=== PATIENT | male | born 1975 | race African-American/Black ===

== ENCOUNTER 2019-05-01 07:27 | Observation (INO) | payer OTHER ==
--- NOTE | 2019-05-01 08:04 | ED ---
HPI Chest Pain - HPI Summary HPI Summary: This pt is a 43 y/o male presenting to [facility] via facility transportation from [place] for chest pain and elevated blood pressure. Pt was brought to the ED for concerns of increased blood pressure. Patient describes a "cramping feeling " around both sides of his ribs for over a week now. Pt notes this pain is similar to when he had pneumonia, but reports "nt as intense." He states his pain is present with deep breaths and it causes him to take shallow breaths. Pt notes since he has had blood clots he has been having "breathing issues." Pt reports swelling in his legs every day. He states he has been eating and drinking ok. Pt is scheduled for an echo but does not know the date. PMHx: DVT, PE, high cholesterol, HTN. Denies hx of heart disease. Denies hx of DM, although he states he was once told he was borderline. Denies hx of liver or kidney disease. Patient reports he [place] was [place] blood [place] and had a stress test then, which patient states was normal. He was placed on Eliquis for 6 months and then was discontinued. He notes he had another blood clot after and was placed again on Eliquis. Patient notes he last had imaging that showed a clot in his lung in December 2018 (he was not incarcerated then). Patient is currently on Eliquis and his last dose was at midnight. He missed a dose of Eliquis on 04/27/19 night as he was being moved to his current facility ( he is relatively new). Patient is also on Lipitor. He is not on any medications for HTN. His blood pressure at the facility was 145/105. Pt has a ventral hernia but does not know how long he's had it for. NDKA. Patients medication reviewed this visit. - History of Current Complaint Chief Complaint: EDChestPainROMI Time Seen by Provider: 05/01/19 07:40 Hx Obtained From: Patient Onset/Duration: Started Days Ago, Still Present Timing: Lasting Days Current Severity: Moderate Pain Intensity: 4 Pain Scale Used: 0-10 Numeric Chest Pain Location: Left Lateral, Right Lateral Chest Pain Radiates: No Character: Dull/Aching - Aching Aggravating Factor(s): Movement, Deep Breaths Alleviating Factor(s): Rest Associated Signs and Symptoms: Positive: Chest Pain, Edema - in legs. Negative : Fever, Abdominal Pain - Allergy/Home Medications Allergies/Adverse Reactions: Allergies Allergy/AdvReac Type Severity Reaction Status Date / Time No Known Allergies Allergy Verified 05/01/19 07:46 Home Medications: Home Medications Apixaban* [Eliquis*] 5 mg PO BID 05/01/19 [History Confirmed 05/01/19] Atorvastatin* [Lipitor*] 10 mg PO BEDTIME 05/01/19 [History Confirmed 05/01/19] PMH/Surg Hx/FS Hx/Imm Hx Previously Healthy: Yes Endocrine/Hematology History: Reports: Hx Anticoagulant Therapy Denies: Hx Diabetes Cardiovascular History: Reports: Hx Deep Vein Thrombosis, Hx Hypercholesterolemia, Hx Hypertension Respiratory History: Reports: Hx Pulmonary Embolism - Surgical History Surgical History: None Infectious Disease History: No Infectious Disease History: Denies: Traveled Outside the [place] in Last 30 Days - Family History Known Family History: Positive: Cardiac Disease - mother with 2 "small heart attacks", Hypertension - mother, Diabetes - mother Family History: mother with high cholesterol - Social History Lives: Alone - incarcerated Alcohol Use: None Substance Use Type: Reports: None Smoking Status (MU): Never Smoked Tobacco Review of Systems Negative: Fever Positive: Chest Pain Positive: Other - shallow resp Gastrointestinal: Negative Positive: Edema - in legs Neurological: Negative All Other Systems Reviewed And Are Negative: Yes Physical Exam - Summary Physical Exam Summary: Vital Signs Reviewed: Yes A+Ox3, no distress, speaking easy sentences Eyes: Conjunctiva Clear, MARIZOL. EOM intact and full ENT: Hearing grossly normal TM x 2 clear, mmoist, uvula midline, no exudate, no erythema Neck: Positive: Supple Respiratory: Positive: No respiratory distress, No accessory muscle use + CTA throughout no w/r Cardiovascular: RRR nl s1, s2 no m/r CBT <2 sec no bruits. no reproducible pain abd soft + BS nt/nd no guarding, no distension Musculoskeletal Exam: FELDER x 4 without difficulty Strength Intact, ROM Intact Neurological: Positive: Alert, + sensation throughout Psychological: Positive: Normal Response To Family Skin: Positive: no rash, no ecchymosis Triage Information Reviewed: Yes Vital Signs On Initial Exam: Initial Vitals Temp Pulse Resp BP Pulse Ox 97.7 F 69 20 156/98 99 05/01/19 07:38 05/01/19 07:38 05/01/19 07:38 05/01/19 07:38 05/01/19 07:38 Diagnostics - Vital Signs Vital Signs Temp Pulse Resp BP Pulse Ox 05/01/19 07:38 97.7 F 69 20 156/98 99 - Laboratory Result Diagrams: 05/01/19 07:56 05/01/19 07:56 Lab Statement: Any lab studies that have been ordered have been reviewed, and results considered in the medical decision making process. - Radiology Chest XR Radiology Interpretation Completed By: Radiologist Summary of Radiographic Findings: IMPRESSION: No acute cardiopulmonary process. Dr. Love has reviewed this report. - CT Chest CTA CT Interpretation Completed By: Radiologist Summary of CT Findings: IMPRESSION: Small bilateral pulmonary emboli. Dr. Love has reviewed this report. - EKG 07:33 Cardiac Rate: NL - at 62 bpm EKG Rhythm: Sinus Rhythm EKG Comparison: No Significant Change - No changes compared to 04/21/19 Summary of EKG Findings: Inverted T wave in lead III. No acute ST-T wave changes. No STEMI. Re-Evaluation - Re-Evaluation First Eval Re-Evaluation Time: 09:27 Comment: Reviewed results with patient. Discussed CTA shows acute bilateral PE. Pt currently tuyet Ferrari. d/w Dr. vasquez - will admit, bridge with lovenox - agree to admission Chest Pain Course/Dx - Course Course Of Treatment: Pt presents to ED for reprots of elevated BP and tightness by ribs progresive x 1 week. Pt with h/o hyperlipiemia, and PE =- recurrent- on eliquis. Pt states had and EKGearlier this week when incaceratied - states was told need echo. no cardiac hx. VSS. pt well appearing with non cocnering VS. will check labs, ekg with EKG unchanged from 1 week ago -nted to have inverted T wave 3 and Q wave. will check labs, CXR, CTA. will reassess. pt in agreement with plan. elevated BP - being will be admitted, monitored - likely reate to ED conditin - Diagnoses Provider Diagnoses: Bilateral pulmonary embolism - Provider Notifications Discussed Care Of Patient With: Richard Benjamin Time Discussed With Above Provider: 09:22 Instructed by Provider To: Other - Dr. Benjamin, radiologist, calls to report CTA results of acute bilateral PE. [09:26] Discussed with Dr. Vasquez, hospitalist, who accepted the pt for admission. Discharge - Sign-Out/Discharge Documenting (check all that apply): Patient Departure - Admit to [facility] Patient Received Moderate/Deep Sedation with Procedure: No - Discharge Plan Condition: Stable Disposition: ADMITTED TO [facility] - Billing Disposition and Condition Condition: STABLE Disposition: Admitted to [facility] - Attestation Statements Document Initiated by Scribe: Yes Documenting Scribe: Yakelin Garcia Provider For Whom Scribe is Documenting (Include Credential): Kaleigh Love MD Scribe Attestation: Yakelin Guerra, scribed for Kaleigh Love MD on 05/02/19 at 0333. Scribe Documentation Reviewed: Yes Provider Attestation: The documentation as recorded by the scribeYakelin accurately reflects the service I personally performed and the decisions made by me, Kaleigh Love MD Status of Scribe Document: Viewed
[2019-05-01 08:11] LABS: ABS Eosinophils 0.1 10^3/ul (0-0.6); ABS Lymphocytes 1.4 10^3/ul (1.0-4.8); ABS Monocytes 0.5 10^3/ul (0-0.8); ABS Neutrophils 1.7 10^3/ul (1.5-7.7); Eosinophil % 1.6 %; Hematocrit 42 % (42-52); Hemoglobin 14.4 g/dL (14.0-18.0); Lymphocyte % 38.4 %; Mean Corpuscular HGB Conc 34 g/dL (31-36); Mean Corpuscular Hemoglobin 29 pg (27-31); Mean Corpuscular Volume 84 fL (80-94); Mean Platelet Volume 8.2 fL (7.4-10.4); Nucleated Red Blood Cells % 0.3; Platelet Count 216 10^3/uL (150-450); Red Blood Count 5.02 10^6 /uL (4.18-5.48); Red Cell Distribution Width 14 % (10-15); White Blood Count 3.7 10^3/uL (3.5-10.8)
[2019-05-01] MEDS ORDERED: NS 0.9% 1000 ML** 1,000 ML IV ONE (08:21)
[2019-05-01 08:31] LABS: Albumin 4.2 g/dL (3.2-5.2); Albumin/Globulin Ratio 1.3 (1-3); BUN/Creatinine Ratio 7.4 (8-20); Calcium 9.6 mg/dL (8.6-10.3); EGFR African American 77.7 (>60); EGFR Non-African American 64.2 (>60); Globulin 3.3 g/dL (2-4); Potassium 4.5 mmol/L (3.5-5.0); Total Bilirubin 0.5 mg/dL (0.2-1.0); Total Protein 7.5 g/dL (6.4-8.9)
[2019-05-01 08:36] LABS: INR 1.36 (0.82-1.09)
[2019-05-01] MEDS ORDERED: Iohexol 350* (CONTRAST) 500 ML MDV IV ONE (08:38)
[2019-05-01] MEDS ORDERED: Enoxaparin(*) 100 MG/ML SYR SUBCUT ONE (09:30)
[2019-05-01] MEDS ORDERED: Acetaminophen TAB* 325 MG PO PRN (09:48)
[2019-05-01] MEDS ORDERED: Al Hydrox/Mg Hydrox/Simet LIQ* 30 ML UDC PO PRN (09:48)
--- NOTE | 2019-05-01 11:28 | HP ---
CC: Dr. Kai Lin, [facility] * HISTORY AND PHYSICAL: DATE OF ADMISSION: 05/01/19 PRIMARY CARE PROVIDER: At this point, Dr. Kai Lin from [facility]. CHIEF COMPLAINT: Pleuritic chest pain. HISTORY OF PRESENT ILLNESS: Nile Esparza is a 43-year-old male with history of recurrent PEs. The patient was just started on Eliquis for newly diagnosed recurrent PE in December 2018. In February 2019, he entered state residential [facility]. At that point, he was tried on Coumadin but the patient stated "they had issues with getting him therapeutic." Then, he was placed on Eliquis but he missed the dose within the past week due to his frequent transfer from one facility to the other. He is at current facility for the past week. For the past week, he also started feeling pleuritic chest pain and shortness of breath similar to what he felt in December 2018. He came in to the ED for evaluation and CT showed acute PE. He is going to present overnight observation with question of failure of Eliquis treatment. PAST MEDICAL HISTORY: 1. Recurrent PE. First PE was diagnosed in November 2016. Used Xarelto for 6 months, then his anticoagulation was stopped. In August 2018, he developed another pleuritic chest pain. Once again he was diagnosed with PE, treated with Eliquis at that point for 6 months and then stopped. In December 2018, once again he was diagnosed with PE. At that point, he was placed back on Eliquis but apparently when he entered the residential system in February 2019, a trial of Coumadin was instituted. 2. History of hypertension. 3. History of dyslipidemia. CURRENT MEDICATIONS: Include: 1. Apixaban 5 mg b.i.d. 2. Atorvastatin 10 mg daily. ALLERGIES: No known drug allergies. FAMILY HISTORY: Positive for mother with diabetes, hypertension, and "two small MIs." SOCIAL HISTORY: The patient denies any history of tobacco, alcohol, or drug use , although he is at [facility] at this point, which is involuntary. REVIEW OF SYSTEMS: Please see history of present illness. In addition to the above mentioned, the patient stated that he has had intermittent right leg swelling ever since his diagnosis of the first PE. All the remaining 12 systems were reviewed and apart from the pertinent positives mentioned in history of present illness were negative. PHYSICAL EXAMINATION GENERAL: The patient is a very pleasant 43-year-old male who is in no acute distress. Alert, awake, and oriented x3. VITAL SIGNS: Blood pressure of 136/93, heart rate of 74 and regular, respiratory rate 19, oxygen saturation 100% on room air, temperature of 97.7. HEENT: Head atraumatic, normocephalic. Eyes: Pupils are equal, reactive to light and accommodation. Oropharynx clear. Mucosa moist. NECK: Supple. No JVD. No bruits bilaterally. RESPIRATORY: Clear to auscultation bilaterally. CARDIOVASCULAR: Regular rate and rhythm. No murmur. ABDOMEN: Soft and nontender. Bowel sounds present in all 4 quadrants. EXTREMITIES: There is no edema. Pulses are +2 bilaterally. There is no clubbing or cyanosis. NEUROLOGIC: On neuro evaluation, speech is clear. Cranial nerves II through XII are grossly intact. Motor strength is 5/5 bilaterally. DIAGNOSTIC STUDIES/LAB DATA: Laboratory data shows white blood cell count of 3.7, hemoglobin of 14.4, hematocrit of 42, and platelets of 216. INR was 1.36. Sodium was 141, potassium 4.5, chloride 104, carbon dioxide 29, BUN 9, creatinine 1.22. Liver function tests unremarkable. Troponin of 0. CT angiogram of the chest, impression: "Small bilateral pulmonary emboli." The patient's EKG showed normal sinus rhythm with negative T waves in lead III and aVF. ASSESSMENT AND PLAN: 1. A 43-year-old male with recurrent pulmonary embolisms, who now presents with pleuritic chest pain, shortness of breath, and CT shows small bilateral pulmonary emboli. The patient has history of pulmonary embolus diagnosed in December 2018. At this point, he had been on Eliquis but he missed the dose due to his incarceration within the past week. At this point, I am not 100% sure if that should be considered Eliquis failure. Nevertheless, the patient for the time being is going to be placed on Lovenox. His Eliquis is going to be held. I will ask Dr. Kay from Hematology to see the patient in consultation and recommendation of further anticoagulation. 2. For dyslipidemia, his atorvastatin is going to be continued. 3. Patient has EKG changes with negative T waves. It is difficult to establish how acute they are since I do not have any old EKGs in the system. At this point, the patient is going to be observed on quality assurance monitor bed with follow-up troponins. I suspect his chest pain is likely related to pulmonary embolism alone. 4. Patient's code status is full. TIME SPENT: Approximately 65 minutes was spent on the admission of this patient , more than half of that time was spent [id number] with the patient during the interview and physical exam. [id number]/[facility]PS #: [id number] LALI
[2019-05-01] MEDS ORDERED: Warfarin TAB(*) 5 MG PO SCH (17:00)
--- NOTE | 2019-05-01 17:09 | ECHO ---
*[facility]* [place] [address] Fax #: [phone] Transthoracic Echocardiogram Patient: Nile Esparza [id number] : 1975 Study Date: 05/01/2019 Age: 43 Gender: M HR: 70 bpm Height: 68 in /172.7 cm BSA: 2 m^2 Weight: 189.6 lb /86.2 kg BMI: 28.9 kg/m^2 *Permastone Applicator: * Niharika Cartwright RDCS RN *Referring Physician: * Arely Samuel *Reading Physician: Tony Lin MD History: Pulmonary embolic disease. Functional status: Obstructive sleep apnea. Risk factors: Hypertension. Dyslipidemia. DVT. Recurrent pulmonary emboli. Conclusions Summary: 1. Left ventricle: The cavity size is normal. Wall thickness is normal. Systolic function is mildly reduced. The estimated ejection fraction is 45-50%. Doppler parameters are consistent with abnormal left ventricular relaxation (grade 1 diastolic dysfunction). 2. Right ventricle: The cavity size is normal. Systolic function is low normal. 3. Mitral valve: There is trace to mild regurgitation. 4. Aortic valve: There is trace regurgitation. 5. Tricuspid valve: There is trace to mild regurgitation. 6. Pulmonary arteries: Systolic pressure can not be accurately estimated. Recommendations: No previous echocardiogram available. Study data: Transthoracic echocardiogram. Procedure: Transthoracic echocardiography was performed. Image quality was fair. Complete 2D, spectral Doppler, and color flow Doppler. Location: Bedside. Patient status: Observation. Patient room number: 441-02. Rhythm: Normal sinus rhythm. Findings Left ventricle: The cavity size is normal. Wall thickness is normal. Systolic function is mildly reduced. The estimated ejection fraction is 45-50%. Regional wall motion abnormalities: Hypokinesis of the basal-midinferior myocardium. Doppler parameters are consistent with abnormal left ventricular relaxation (grade 1 diastolic dysfunction). Right ventricle: The cavity size is normal. Systolic function is low normal. Left atrium: The atrium is normal in size. Right atrium: The atrium is normal in size. Mitral valve: The leaflets are mildly thickened. There is no evidence of stenosis. There is trace to mild regurgitation. Aortic valve: The valve is trileaflet. There is no evidence of stenosis. There is trace regurgitation. Tricuspid valve: The valve is structurally normal. There is no evidence of stenosis. There is trace to mild regurgitation. Pulmonic valve: The valve is structurally normal. There is no evidence of stenosis. There is no regurgitation. Aorta: Aortic root: The aortic root is not dilated. Ascending aorta: The ascending aorta is not dilated. Aortic arch: The aortic arch is not dilated. Pericardium: There is no pericardial effusion. Pulmonary arteries: The main pulmonary artery is normal-sized. Systolic pressure can not be accurately estimated. Systemic veins: Inferior vena cava: The vessel is normal in size. The respirophasic diameter changes are in the normal range (>= 50%). Measurements Left ventricle Value Ref Aortic valve Value Ref KAYLENE, LAX 5.2 cm 4.2 - 5.8 Timbo diam, ED 2.3 cm ---- ESD, LAX (H) 4.1 cm 2.5 - 4.0 Peak v, S 0.97 m/sec ---- FS, LAX (L) 21 % 25 - 43 VTI, S 21.7 cm ---- PW, ED 1.0 cm 0.6 - 1.0 Mean grad, S 2.0 mm Hg ---- IVS/PW, ED 0.97 Peak grad, S 4.0 mm Hg ---- E', lat timbo, TDI (L) 9.7 cm/sec >=10.0 LVOT/AV, VTI ratio 0.65 -- -- E/e', lat timbo, 7 TDI Mitral valve Value Ref E', med timbo, TDI (L) 6.3 cm/sec >=7.0 Peak E 0.63 m/sec -- -- E/e', med timbo, 10 Peak A 0.56 m/sec ---- TDI Decel time 306 ms ---- E', avg, TDI 8.0 cm/sec Peak E/A ratio 1.1 ---- E/e', avg, TDI 8 <=14 Pulmonic valve Value Ref LVOT Value Ref Peak v, S 0.59 m/sec ---- Peak jacob, S 0.68 m/sec Peak grad, S 1.0 mm Hg ---- VTI, S 14.2 cm Mean grad, S 1 mm Hg Aortic root Value Ref Root diam 3.8 cm <4.1 Ventricular septum Value Ref IVS, ED 1.0 cm 0.6 - 1.0 Ascending aorta Value Ref AAo AP diam, S 3.0 cm ---- Right ventricle Value Ref KAYLENE, LAX 2.2 cm Aortic arch Value Ref KAYLENE minor ax, A4C 3.3 cm 1.9 - 3.5 Arch diam 2.3 cm ---- mid Decending aorta Value Ref Left atrium Value Ref Mckenna peak jacob 0.71 m/sec ---- AP dim, ES 3.30 cm 3.00 - 4.00 Inferior vena cava Value Ref ML dim, A4C 3.9 cm Diam 1.1 cm ---- SI dim, A4C 4.6 cm Vol/bsa, ES, 1-p 13 ml/m^2 12 - 37 A4C Vol/bsa, ES, A/L 19 ml/m^2 16 - 34 Right atrium Value Ref ML dim, ES, A4C 4.3 cm 2.6 - 4.4 SI dim, ES, A4C 4.9 cm 3.4 - 5.3 Estimated RAP 3 mm Hg Legend: (L) and (H) eleazar values outside specified reference range. Prepared and electronically signed by Tony Harris MD 05/01/2019 17:09
--- NOTE | 2019-05-01 20:06 | CONS ---
CONSULTATION REPORT: DATE OF CONSULT: 05/01/19 REASON FOR CONSULT: Recurrent pulmonary embolus. HISTORY OF PRESENT ILLNESS: Mr. Esparza is a 43-year-old male, who has a history of multiple pulmonary emboli. He initially presented in November of 2016 after hospitalization for pneumonia. He was in bed for several days, went home and had swelling in his right lower extremity and then presented to the emergency room with both lower extremity swelling and chest pain. CT scan at that time showed unilateral pulmonary embolus, he believes on the right side. He was on heparin briefly, then treated with Xarelto for 6 months, stopping anticoagulation in the fall. His chest pain resolved, he continued to have some residual swelling in the right lower extremity. In June or July of 2018, he was taking long drives back and forth to [place] when he developed bilateral lower extremity edema. He then had chest pain, was admitted again to the hospital and found to have bilateral pulmonary emboli on CT scans. We do not have details of either hospitalization or his imaging studies. He was discharged on Eliquis for 6 months, but stopped treatment in November of 2018. He had been off Eliquis for 1 month, when in December of 2018 he again had lower extremity edema and chest pain. He was seen in [place] and a CT scan again showed pulmonary emboli, Eliquis was restarted. He remained on Eliquis since that time. On 03/06/19, he was incarcerated in [facility]. On incarceration, there was no access to Eliquis, he was started on Coumadin. He remained on Coumadin for 10 days before being transported to [place], [place], on 03/18/19. Arriving in [place], Coumadin was stopped, per his report INR was subtherapeutic. He was started back on Eliquis 5 mg p.o. b.i.d. on 03/19/19. He has remained on Eliquis since that time, missing 1 dose on the evening of 04/29/19, when he was transferred up to [place]. He developed increased chest pain starting approximately 04/18/19. He has been feeling increasingly short of breath because of the hot weather. He is short of breath with any exertion or walking up stairs. His pain and shortness of breath escalated yesterday and he went for a sick call at his facility. He had high blood pressure on exam and was sent to the emergency room. On presentation today at 7:40 a.m., he had a blood pressure of 156/98, peaked at 163/115. He had troponins that were negative, creatinine slightly elevated at 1.22, and a CT scan that showed bilateral peripheral pulmonary emboli, lower lobe with segmental atelectasis. He had an echocardiogram that showed both reduced LV and RV function with an ejection fraction of 45%, no significant valvular disease. He was admitted and placed on Lovenox 90 mg subcu q.12. Since admission, blood pressure has improved and his chest pain has improved. PAST MEDICAL HISTORY: 1. Recurrent PEs as noted above. 2. Hypertension. 3. Dyslipidemia. CURRENT MEDICATIONS: 1. Atorvastatin 10 mg a day. 2. Lovenox 90 subcu b.i.d. 3. Colace. 4. Senna. 5. Tylenol for pain. ALLERGIES: None. FAMILY HISTORY: Mother has diabetes. Hypertension in the family and cardiovascular disease. SOCIAL HISTORY: He lives in [facility]. He is at [place] for another 90 days. REVIEW OF SYSTEMS: As per HPI, he also has some residual swelling in both ankles. Fourteen-point otherwise reviewed and negative. PHYSICAL EXAM: Temperature 97.8, heart rate 67, respirations 18, sat 99%, BP 114/85. HEENT: Mucosa moist. No lesions. No cervical or supraclavicular lymphadenopathy. Lungs are clear to auscultation. Heart: Regular rate and rhythm. S1, S2. No murmurs, rubs, or gallops. Abdomen: Nontender, nondistended. No hepatosplenomegaly. Extremities: He has +1 edema right lower extremity. No edema in the left. Skin: No lesions. Ventral skin, did not do full exam. Neuro: Alert and oriented x3. Grossly nonfocal. ASSESSMENT AND PLAN: A 43-year-old male with a history of pulmonary embolus in November 2016 and second emboli in June 2018. Those are the only 2 emboli that I am certain of based on his history. He has recurrent episodes of chest pain and shortness of breath, differential diagnosis includes recurrent pulmonary embolism or postthrombotic syndrome, hypertension w/ diastolic CHF. It is a difficult case because we do not have access to his prior imaging studies. If he has recurrent chest pain, but not thrombi, then he can remain on Eliquis. If he has an acute PE today, that would be an Eliquis failure as he states that he has been anticoagulated consistently since 03/19/19. He would need to go to Lovenox and then Coumadin. 1. Send D-dimer now. Given history of recurrent thrombi, we will also send some hypercoagulation studies including a lupus anticardiolipin antibody, Leiden factor V and prothrombin gene mutation. 2. If the D-dimer is normal, I would discharge him back on Eliquis; if elevated , discharge on Lovenox. 3. He could start Coumadin 5 mg daily with an INR check in 1 week. He would need to stay on Lovenox until he is therapeutic on Coumadin for 48 hours. It is important there is no lapse in anticoagulation if he has had a third acute event. 4. 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 5. Based on the thrombosis from June 2018 alone, I recommend long-term anticoagulation. I also discussed precautions when traveling such as getting up and walking around every 2 hours. [id number]/[facility] #: [id number] LALI
[2019-05-01] MEDS: Docusate CAP* 100 MG PO SCH (21:20)
[2019-05-01] MEDS: Atorvastatin* 10 MG TAB PO SCH (21:20)
[2019-05-01] MEDS: Enoxaparin(*) 100 MG/ML SYR SUBCUT SCH (21:29)
[2019-05-02 06:20] LABS: ABS Eosinophils 0.1 10^3/ul (0-0.6); ABS Lymphocytes 1.9 10^3/ul (1.0-4.8); ABS Monocytes 0.4 10^3/ul (0-0.8); Eosinophil % 3.5 %; Hematocrit 41 % (42-52); Hemoglobin 14.1 g/dL (14.0-18.0); Lymphocyte % 54.6 %; Mean Corpuscular HGB Conc 34 g/dL (31-36); Mean Corpuscular Hemoglobin 29 pg (27-31); Mean Corpuscular Volume 84 fL (80-94); Mean Platelet Volume 8.6 fL (7.4-10.4); Nucleated Red Blood Cells % 0.1; Platelet Count 219 10^3/uL (150-450); Red Blood Count 4.86 10^6 /uL (4.18-5.48); Red Cell Distribution Width 14 % (10-15); White Blood Count 3.4 10^3/uL (3.5-10.8)
[2019-05-02 06:24] LABS: INR 1.15 (0.82-1.09)
[2019-05-02 06:41] LABS: BUN/Creatinine Ratio 6.7 (8-20); Calcium 9.1 mg/dL (8.6-10.3); EGFR African American 79.2 (>60); EGFR Non-African American 65.5 (>60); Potassium 3.9 mmol/L (3.5-5.0)
[2019-05-02] MEDS: Docusate CAP* 100 MG PO SCH ×2 (08:36→19:39)
[2019-05-02] MEDS: Enoxaparin(*) 100 MG/ML SYR SUBCUT SCH (09:40)
--- NOTE | 2019-05-02 15:41 | PN ---
Subjective Date of Service: 05/02/19 Interval History: Reports improvement in sob and cp Objective Active Medications: Acetaminophen (Tylenol Tab*) 650 mg PO Q4H PRN PRN Reason: FEVER/PAIN Al Hydrox/Mg Hydrox/Simethicone (Maalox Plus*) 30 ml PO Q6H PRN PRN Reason: INDIGESTION Apixaban (Eliquis*) 10 mg PO BID DESTINY Atorvastatin Calcium (Lipitor*) 10 mg PO BEDTIME FOR[facility], [facility]1983 Last Admin: 05/01/19 21:20 Dose: 10 mg Docusate Sodium (Colace Cap*) 100 mg PO BID [facility], [facility] Last Admin: 05/02/19 08:36 Dose: Not Given Vital Signs - 8 hr 05/02/19 05/02/19 07:45 11:12 Temperature 98 F 98.1 F Pulse Rate 65 61 Respiratory 18 20 Rate Blood Pressure 131/92 127/86 (mmHg) O2 Sat by Pulse 100 100 Oximetry Oxygen Devices in Use Now: None Eyes: No Scleral Icterus Ears/Nose/Mouth/Throat: NL Teeth, Lips, Gums Neck: NL Appearance and Movements; NL JVP Respiratory: Symmetrical Chest Expansion and Respiratory Effort, Clear to Auscultation Cardiovascular: NL Sounds; No Murmurs; No JVD, RRR Extremities: No Edema Result Diagrams: 05/02/19 05:28 05/02/19 05:28 Assess/Plan/Problems-Billing Assessment: - Patient Problems (1) Pulmonary embolus Current Visit: Yes Status: Acute Code(s): I26.99 - OTHER PULMONARY EMBOLISM WITHOUT ACUTE COR PULMONALE SNOMED Code(s): 86247751 Comment: Recurrent PE D dimer not elevated Per Heme/Onc will go back on Eliquis Will start with Eliquis 10 mg bid for a week and go back to 5 mg po bid Hypercoag w/u ordered Symptoms improved Lovenox stopped (2) Dyslipidemia Current Visit: Yes Status: Acute Code(s): E78.5 - HYPERLIPIDEMIA, UNSPECIFIED SNOMED Code(s): 369278250 Comment: continue statin
[2019-05-02] MEDS: Apixaban* 5 MG TAB PO SCH (19:39)
[2019-05-02] MEDS: Atorvastatin* 10 MG TAB PO SCH (19:39)
[2019-05-03 05:43] LABS: ABS Eosinophils 0.1 10^3/ul (0-0.6); ABS Lymphocytes 1.4 10^3/ul (1.0-4.8); ABS Monocytes 0.3 10^3/ul (0-0.8); ABS Neutrophils 1.1 10^3/ul (1.5-7.7); Eosinophil % 3.3 %; Hematocrit 42 % (42-52); Hemoglobin 14.4 g/dL (14.0-18.0); Lymphocyte % 46.6 %; Mean Corpuscular HGB Conc 34 g/dL (31-36); Mean Corpuscular Hemoglobin 29 pg (27-31); Mean Corpuscular Volume 85 fL (80-94); Mean Platelet Volume 8.3 fL (7.4-10.4); Nucleated Red Blood Cells % 0.2; Platelet Count 194 10^3/uL (150-450); Red Blood Count 4.96 10^6 /uL (4.18-5.48); Red Cell Distribution Width 14 % (10-15)
[2019-05-03 05:51] LABS: INR 1.24 (0.82-1.09)
[2019-05-03 06:02] LABS: Calcium 9.2 mg/dL (8.6-10.3); EGFR African American 84.9 (>60); EGFR Non-African American 70.2 (>60); Potassium 4.1 mmol/L (3.5-5.0)
[2019-05-03] MEDS: Docusate CAP* 100 MG PO SCH (08:26)
[2019-05-03] MEDS: Apixaban* 5 MG TAB PO SCH (08:26)
[2019-05-03 10:39] VITALS: BP 138/89
--- NOTE | 2019-05-03 15:34 | DS ---
DISCHARGE SUMMARY: DATE OF ADMISSION: 05/01/19 DATE OF DISCHARGE: 05/03/19 PRIMARY DIAGNOSES: 1. Pulmonary embolus. 2. Recurrent pulmonary embolus. SECONDARY DIAGNOSES: 1. Hypertension. 2. Dyslipidemia. HOSPITAL COURSE: A 43-year-old male with history of recurrent PE, presented to the hospital with shortness of breath, chest pain and symptoms of PE. The patient had his initial episode November 2016 after hospitalization for pneumonia. He was in bed for several days and a CT scan in 2016 showed unilateral pulmonary embolus. He was on heparin, then on Xarelto, stopping all anticoagulation in the fall of 2016. His chest pain resolved. In June or July of 2018, he was driving back and forth to [place], had bilateral lower extremity edema, chest pain, and was noted to have another PE and was discharged on Eliquis for 6 months and stopped treatment in November 2018. He had been off Eliquis for a month, and in December 2018, he had another PE. He was initially on Coumadin and was in [place] and was transported back to [place], [place] on 03/18/19. At that time, the Coumadin was stopped as the INR was subtherapeutic and he was restarted on Eliquis 5 mg p.o. b.i.d. on 03/19/19 and has been on Eliquis since them, missing 1 dose on the evening of , when he was transferred up to [place]. The patient reports that he has been increasingly short of breath since 04/18/19. When he presented to the hospital, he was noted to be hypertensive and the CT scan showed bilateral pulmonary embolus and lower lobe with subsegmental atelectasis. He had an echocardiogram which showed both reduced LV and RV function with an ejection fraction of 45%, no significant valvular disease. He was initially placed on Lovenox 90 mg subcu q.12 hours. His blood pressure improved and his chest pain symptoms improved. The patient was seen by Heme/Onc, Dr. Sanchez Kay, and please refer to his detailed consult for full details and timeline of his prior episodes as listed above. It was ascertained that he could have recurrent pulmonary embolism or postthrombotic syndrome and it was not clear if this was really Eliquis failure in which case he would need to be on Lovenox and Coumadin or if Eliquis could be continued and he did miss doses and had been in transition and moved to different facilities. Dr. Kay recommended checking a D -dimer and if D-dimer is normal, recommended discharging the patient on Eliquis and if the D-dimer was elevated, to discharge the patient on Lovenox. The patient's repeat D-dimer came back in the normal range, less than 200. In addition, it would be more difficult to manage Coumadin in therapeutic level with his frequent moves to different facilities and it may be safer and the patient prefers to be on Eliquis. In light of all this and D-dimer returning in normal range and per Dr. Kay's recommendation, the patient was placed back on Eliquis and his symptoms have resolved. The patient will initially be on Eliquis 10 mg twice a day for 7 days just to be conservative to treat like an acute PE. The patient has already completed a day and the patient has to be on 10 mg twice a day for 6 more days and after this the patient to go back on Eliquis 5 mg twice a day. Hypercoagulability workup including lupus anticardiolipin antibody, factor V Leiden mutation and prothrombin gene mutation have been sent out and the patient to follow up with Dr. Kay as an outpatient in the next few weeks. Heme/Onc also recommends a long-term anticoagulation and precautions when travelling such as getting up and walking around every 2 hours. Vitals and labs noted to be stable at the time of discharge. DIAGNOSTIC STUDIES/LAB DATA: WBC 3.4, hemoglobin 14.1, hematocrit 41, platelets noted to be 219. Sodium 138, potassium 3.1, chloride 105, CO2 27, BUN 9, creatinine 1.1. Imaging: Echocardiogram on 05/01/19 which showed ejection fraction to be 45% to 50%, grade 1 diastolic dysfunction, systolic function in low normal, trace-to -mild mitral regurg, trace aortic regurg, [id number] tricuspid regurg. Pulmonary artery systolic pressure could not be accurately ascertained. The patient had a CT of the chest which showed mild dependent bilateral lower lobe subsegmental atelectasis and small bilateral pulmonary emboli. PHYSICAL EXAM: Vitals: Temperature 98.4, pulse 70, oxygen saturation 99% on room air, heart rate 15, blood pressure 138/89. HEENT: NCAT. Heart: S1, S2 present, regular at time of exam. Lungs: Clear to auscultation bilaterally. Abdomen: Soft. Extremities: No edema. Neuro: Alert and oriented x3. No focal deficits. MEDICATION LIST AT THE TIME OF DISCHARGE: 1. Lipitor 10 mg p.o. at bedtime. 2. Eliquis 10 mg p.o. b.i.d. for 6 days. This is to be followed by his usual dose of 5 mg p.o. b.i.d. after that. INSTRUCTIONS: 1. The patient to follow up with physician at facility within 2 to 3 days. 2. The patient to follow up with Dr. Kay as an outpatient in a few weeks. TIME SPENT: Total time spent on discharge is equal to 45 minutes. [id number]/CPS #: [id number] MTDRuth Ann
[2019-05-04 15:42] LABS: LAC PT Mix 1:1 12.8 sec
[2019-05-04 16:07] LABS: LUP Hexthrombin Time (Bovine) 24 sec (15 - 23)
[2019-05-09] MEDS ORDERED: Apixaban* 5 MG TAB PO SCH (21:00)
== END 2019-05-03 12:48 ==
LOC: ED 07:27 → EEVIPCON 11:08 → MEDTELE 11:08
PROVIDERS: ADMIT Internal Medicine; ATTEND Internal Medicine
DX: I26.99 Other pulmonary embolism without acute cor pulmonale (principal); Z86.711 Personal history of pulmonary embolism; Z79.01 Long term (current) use of anticoagulants; R07.9 Chest pain, unspecified; R60.0 Localized edema; I10 Essential (primary) hypertension; E78.5 Hyperlipidemia, unspecified; Z79.899 Other long term (current) drug therapy; Z86.718 Personal history of other venous thrombosis and embolism; E78.00 Pure hypercholesterolemia, unspecified
CPT/HCPCS: 36415; 71045; 71275; 80048; 80053; 81240; 82550; 83690; 83735; 83880; 84484; 85025; 85379; 85610; 85613; 85730; 93005; 93306; 96360; 96361; 96372; 99221; 99284; A9270-GY; G0378; J1650; Q9967